=== PATIENT | female | born 1970 | race Hispanic/Latino ===

== ENCOUNTER 2020-11-26 15:43 | Outpatient (CLI) | payer OTHER | END 2020-11-26 15:44 | disposition home or self-care (01) | LOC: BICRAD 15:43 | PROVIDERS: ATTEND Internal Medicine Rheumatology | DX: M94.0 Chondrocostal junction syndrome [Tietze] (principal); B02.29 Other postherpetic nervous system involvement; J90 Pleural effusion, not elsewhere classified | CPT/HCPCS: 71046 ==